=== PATIENT | female | born 1980 | race Two or more races ===

== ENCOUNTER 2019-11-01 21:23 | Inpatient (IN) | payer MEDICAID ==
[2019-11-01] MEDS ORDERED: Witch Hazel Medicated Pads 40/Jar TOP PRN (21:40)
[2019-11-01] MEDS ORDERED: Benzocaine/Menthol 20%-0.5% Spray 56 GM Canister TOP PRN (21:40)
[2019-11-01] MEDS ORDERED: Docusate Sodium 100 MG Cap PO PRN (21:40)
--- NOTE | 2019-11-01 21:45 | PCM.LDHP ---
L&D History of Present Illness - General Date of Service: 11/01/19 Admit Problem/Dx: Patient Status Order with Admit Dx/Problem 11/01/19 21:40 Patient Status [ADT] Routine Admission Diagnosis/Problem Admission Diagnosis/Problem Labor established - History of Present Illness Introduction:: 39 year old at 39w0. Here via EMS 9 cm. [facility] with Dr. 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 H&P Review of Systems - Review of Systems: Review Of Systems: See Below General: Reports: No Symptoms HEENT: Reports: No Symptoms Pulmonary: Reports: No Symptoms Cardiovascular: Reports: No Symptoms Gastrointestinal: Reports: No Symptoms Genitourinary: Reports: No Symptoms Musculoskeletal: Reports: No Symptoms Skin: Reports: No Symptoms Psychiatric: Reports: No Symptoms Neurological: Reports: No Symptoms Hematologic/Lymphatic: Reports: No Symptoms Immunologic: Reports: No Symptoms L&D Exam - Exam Exam: See Below - OB Specific Contraction Intensity: Strong Movement: Active Heart Tones: Present Heart Rate (FHR) Variability: Moderate (6-25 bmp) Presentation: Vertex - Rey Score Rey Score Cervix Position: Anterior Rey Score Effacement: >80% Rey Score Dilation: > 5 cm Rey Score Infant's Station: +1, +2 - Exam General: Alert, Oriented HEENT: PERRLA, Conjunctiva Clear, EACs Clear, EOMI, Hearing Intact, Mucosa Moist & [place], Nares Patent, Normal Nasal Septum, Posterior Pharynx Clear, TMs Clear Neck: Supple, Trachea Midline Lungs: Clear to Auscultation, Normal Respiratory Effort Cardiovascular: Regular Rate, Regular Rhythm GI/Abdominal Exam: Normal Bowel Sounds, Soft, Non-Tender, No Organomegaly, No Distention, No Abnormal Bruit, No Mass, Pelvis Stable Back Exam: Normal Inspection, Full Range of Motion Extremities: Normal Inspection, Normal Range of Motion, Non-Tender, No Pedal Edema, Normal Capillary Refill Skin: Warm, Dry, Intact Neurological: Cranial Nerves Intact, Reflexes Equal Bilateral Psychiatric: Alert, Normal Affect, Normal Mood Problem List Initiated/Reviewed/Updated: Yes Orders Last 24hrs: Active Orders 24 hr Category Date Time Status Patient Status Manage Transfer [TRANSFER] Routine ADT 11/01/19 21:38 Active Patient Status [ADT] Routine ADT 11/01/19 21:40 Ordered Activity as Tolerated [RC] PER UNIT ROUTINE Care 11/01/19 21:40 Ordered Vital Signs [RC] ASDIRECTED Care 11/01/19 21:40 Ordered RAPID PLASMA REAGIN,RPR [CHEM] Routine Lab 11/01/19 21:42 Ordered Benzocaine/Menthol [Dermoplast Pain Relief [place]] Med 11/01/19 21:40 Ordered See Dose Instructions TOP ASDIRECTED PRN Docusate Sodium [Colace] Med 11/01/19 21:40 Ordered 100 mg PO BID PRN Ibuprofen [Motrin] Med 11/01/19 21:40 Ordered 600 mg PO Q6H PRN witch Mario [Tucks] Med 11/01/19 21:40 Ordered 1 pad TOP ASDIRECTED PRN Assess Lochia [WOMSER] Per Unit Routine Oth 11/01/19 21:40 Ordered Assess Uterine Involution [WOMSER] Per Unit Routine Oth 11/01/19 21:40 Ordered Breast Pump [WOMSER] Per Unit Routine Oth 11/01/19 21:40 Ordered Heat Therapy [OM.PC] PRN Oth 11/01/19 21:45 Ordered Heat Therapy [OM.PC] PRN Oth 11/02/19 21:45 Ordered Medication Administration Instruction [OM.PC] Routine Oth 11/01/19 21:40 Ordered Perineal Care [OM.PC] Per Unit Routine Oth 11/01/19 21:40 Ordered Sitz Bath [OM.PC] Per Unit Routine Oth 11/01/19 21:40 Ordered Medication Orders Benzocaine/Menthol (Dermoplast Pain Relief [place]) 0 gm TOP ASDIRECTED PRN PRN Reason: Perineal Comfort Measure Docusate Sodium (Colace) 100 mg PO BID PRN PRN Reason: Constipation Ibuprofen (Motrin) 600 mg PO Q6H PRN PRN Reason: Mild pain or fever Witch Mario (Tucks) 1 pad TOP ASDIRECTED PRN PRN Reason: Pain Assessment/Plan Comment:: Term labor with rapid after arrival
--- NOTE | 2019-11-01 21:47 | PCM.SN.2 ---
- Free Text/Narrative Note: Stage I - Patient presented 9 cm in active labor. IV placed. AROM clear fluid. Stage II - of viable female, weight 3470g, 8/9 APGARS at 2126. Head delivered in controlled manner over intact perineum. Body and shoulders atraumatically. To maternal abdomen. Cord clamped and cut. Positive cry. Stage III - of intact placenta at 2127. EBL 300. No laceration. 3vc. Cord blood and segment sent.
[2019-11-01] MEDS ORDERED: Sodium Chloride 0.9% 10 ML Syringe FLUSH PRN (21:59)
[2019-11-01] MEDS ORDERED: Oxytocin/Lactated Ringers 10 UNIT/1,000 ML BAG IV SCH (21:59)
[2019-11-01] MEDS ORDERED: Nalbuphine 10 MG/ML Syringe IVPUSH PRN (21:59)
[2019-11-01] MEDS ORDERED: Lactated Ringers 1,000 ML IV SCH (21:59)
[2019-11-01] MEDS: Ibuprofen 600 MG Tab PO PRN (22:29)
[2019-11-02] MEDS: Ibuprofen 600 MG Tab PO PRN (04:26)
--- NOTE | 2019-11-02 06:21 | PCM.PNPP ---
- General Info Date of Service: 11/02/19 Functional Status: Reports: Pain Controlled - Review of Systems General: Reports: No Symptoms HEENT: Reports: No Symptoms Pulmonary: Reports: No Symptoms Cardiovascular: Reports: No Symptoms Gastrointestinal: Reports: No Symptoms Genitourinary: Reports: No Symptoms Musculoskeletal: Reports: No Symptoms Skin: Reports: No Symptoms Neurological: Reports: No Symptoms Psychiatric: Reports: No Symptoms - General Info Date of Service: 11/02/19 - Patient Data Vital Signs - Most Recent: Last Vital Signs Temp 36.4 C 11/02/19 02:25 Pulse 92 11/02/19 02:25 Resp 15 11/02/19 02:25 BP 92/57 L 11/02/19 02:25 Pulse Ox 98 11/02/19 02:25 Med Orders - Current: Current Medications Benzocaine/Menthol (Dermoplast Pain Relief [place]) 0 gm TOP ASDIRECTED PRN PRN Reason: Perineal Comfort Measure Last Admin: 11/01/19 22:29 Dose: 1 canister Documented by: Docusate Sodium (Colace) 100 mg PO BID PRN PRN Reason: Constipation Oxytocin/Lactated Ringer's (Pitocin In Lr 10 Units/1,000 Ml) 10 unit in 1,000 mls @ 100 mls/hr IV .CONTINUOUS IBRAHIMA Lactated Ringer's (Ringers, Lactated) 1,000 mls @ 100 mls/hr IV ASDIRECTED IBRAHIMA Last Admin: 11/01/19 21:28 Dose: 900 mls/hr Documented by: Ibuprofen (Motrin) 600 mg PO Q6H PRN PRN Reason: Mild pain or fever Last Admin: 11/02/19 04:26 Dose: 600 mg Documented by: Nalbuphine HCl (Nubain) 10 mg IVPUSH Q2H PRN PRN Reason: Pain Sodium Chloride (Saline Flush) 10 ml FLUSH ASDIRECTED PRN PRN Reason: Keep Vein Open Witch Mario (Tucks) 1 pad TOP ASDIRECTED PRN PRN Reason: Pain Last Admin: 11/01/19 22:28 Dose: 1 container Documented by: - Interaction Infant Disposition, : in Room with Family Support Person: Significant Other, Other (see below) - Recovery Exam Fundal Tone: Firm Fundal Level: At Umbilicus Fundal Placement: Midline Lochia Amount: Moderate Lochia Color: Rubra/Red Perineum Description: Intact, Minimal Bruising/Swelling Episiotomy/Laceration: None Bladder Status: Voiding Urinary Elimination: Voided - Exam General: Alert, Oriented HEENT: Pupils Equal Neck: Supple Lungs: Clear to Auscultation, Normal Respiratory Effort Cardiovascular: Regular Rate, Regular Rhythm GI/Abdominal Exam: Normal Bowel Sounds, Soft, Non-Tender, No Organomegaly, No Distention, No Abnormal Bruit, No Mass, Pelvis Stable Extremities: Normal Inspection, Normal Range of Motion, Non-Tender, No Pedal Edema, Normal Capillary Refill Neurological: No New Focal Deficit Psy/Mental Status: Alert, Normal Affect, Normal Mood - Problem List Review Problem List Initiated/Reviewed/Updated: Yes - My Orders Last 24 Hours: My Active Orders 11/01/19 Dinner Regular Diet [DIET] 11/01/19 21:40 Patient Status [ADT] Routine Activity as Tolerated [RC] PER UNIT ROUTINE Vital Signs [RC] 09,15,21,03 Benzocaine/Menthol [Dermoplast Pain Relief [place]] See Dose Instructions TOP ASDIRECTED PRN Docusate Sodium [Colace] 100 mg PO BID PRN Ibuprofen [Motrin] 600 mg PO Q6H PRN witch Mario [Tucks] 1 pad TOP ASDIRECTED PRN Assess Lochia [WOMSER] Per Unit Routine Assess Uterine Involution [WOMSER] Per Unit Routine Breast Pump [WOMSER] Per Unit Routine Medication Administration Instruction [OM.PC] Routine Perineal Care [OM.PC] Per Unit Routine Sitz Bath [OM.PC] Per Unit Routine 11/01/19 21:45 Heat Therapy [OM.PC] PRN 11/01/19 21:56 RAPID PLASMA REAGIN,RPR [CHEM] Routine 11/01/19 21:59 Lactated Ringers [Ringers, Lactated] 1,000 ml IV ASDIRECTED Nalbuphine [Nubain] 10 mg IVPUSH Q2H PRN Oxytocin/Lactated Ringers [Pitocin in LR 10 Units/1,000 ML] 10 unit in 1,000 ml IV .CONTINUOUS Sodium Chloride 0.9% [Saline Flush] 10 ml FLUSH ASDIRECTED PRN 11/01/19 21:59 Activity as Tolerated [RC] PFP Communication Order [RC] ASDIRECTED Heart Tones [RC] ASDIRECTED Non Stress Test [RC] PER UNIT ROUTINE Notify Provider [RC] PFP Notify Provider [RC] PRN Peripheral IV Care [RC] . DIRECTED Vital Signs [RC] PER UNIT ROUTINE Electronic Heart Tones Ext w TOCO [WOMSER] Routine Electronic Heart Tones Internal [WOMSER] Per Unit Routine Peripheral IV Insertion Adult [OM.PC] Routine 11/02/19 21:45 Heat Therapy [OM.PC] PRN - Assessment Assessment:: PPD1 Doing great. Probably discharge tomorrow - Plan Plan:: Term labor with rapid after arrival
[2019-11-02] MEDS ORDERED: Measles, Mumps & Rubella Vaccine 0.5 ML SDV SUBCUT ONE (20:00)
--- NOTE | 2019-11-03 08:05 | PCM.DCSUM1 ---
Discharge Summary - Hospital Course Diagnosis: Stroke: No - Discharge Data Discharge Date: 11/03/19 Discharge Disposition: Home, Self-Care 01 Condition: Good - Referral to Home Health Primary Care Physician: Moraima Godoy MD - Patient Instructions Diet: Usual Diet as Tolerated Activity: No Strenuous Activities Driving: May Drive Today Wound/Incision Care: Keep Operative Site/Wound Site Clean and Dry Notify Provider of: Fever - Discharge Plan *PRESCRIPTION DRUG MONITORING PROGRAM REVIEWED*: No *COPY OF PRESCRIPTION DRUG MONITORING REPORT IN PATIENT LIANE: No Home Medications: Home Meds Acyclovir [Zovirax] 400 mg PO DAILY 11/02/19 [History] Ferrous Sulfate 325 mg PO DAILY 11/02/19 [History] Pnv No.95/Ferrous Fum/Folic AC [ Vitamins Tablet] 1 tab PO DAILY 11/02/19 [History] Referrals: Arlet Rascon MD [Physician] - (2 weeks ) - Discharge Summary/Plan Comment DC Time >30 min.: No - General Info Date of Service: 11/03/19 Functional Status: Reports: Pain Controlled - Review of Systems General: Reports: No Symptoms HEENT: Reports: No Symptoms Pulmonary: Reports: No Symptoms Cardiovascular: Reports: No Symptoms Gastrointestinal: Reports: No Symptoms Genitourinary: Reports: No Symptoms Musculoskeletal: Reports: No Symptoms Skin: Reports: No Symptoms Neurological: Reports: No Symptoms Psychiatric: Reports: No Symptoms - Patient Data Vitals - Most Recent: Last Vital Signs Temp 36.7 C 11/03/19 03:54 Pulse 67 11/03/19 03:54 Resp 14 11/03/19 03:54 BP 95/62 11/03/19 03:54 Pulse Ox 99 11/03/19 03:54 Weight - Most Recent: 68.946 kg I&O - Last 24 hours: Intake & Output 11/02/19 11/03/19 11/03/19 22:59 06:59 14:59 Intake Total 240 Balance 240 Med Orders - Current: Current Medications Benzocaine/Menthol (Dermoplast Pain Relief [place]) 0 gm TOP ASDIRECTED PRN PRN Reason: Perineal Comfort Measure Last Admin: 11/01/19 22:29 Dose: 1 canister Documented by: Docusate Sodium (Colace) 100 mg PO BID PRN PRN Reason: Constipation Oxytocin/Lactated Ringer's (Pitocin In Lr 10 Units/1,000 Ml) 10 unit in 1,000 mls @ 100 mls/hr IV .CONTINUOUS IBRAHIMA Lactated Ringer's (Ringers, Lactated) 1,000 mls @ 100 mls/hr IV ASDIRECTED IBRAHIMA Last Admin: 11/01/19 21:28 Dose: 900 mls/hr Documented by: Ibuprofen (Motrin) 600 mg PO Q6H PRN PRN Reason: Mild pain or fever Last Admin: 11/02/19 04:26 Dose: 600 mg Documented by: Nalbuphine HCl (Nubain) 10 mg IVPUSH Q2H PRN PRN Reason: Pain Sodium Chloride (Saline Flush) 10 ml FLUSH ASDIRECTED PRN PRN Reason: Keep Vein Open Witch Dilma (Tucks) 1 pad TOP ASDIRECTED PRN PRN Reason: Pain Last Admin: 11/01/19 22:28 Dose: 1 container Documented by: Discontinued Medications Measles/Mumps/Rubella Vaccine Live (M-M-R Ii Vaccine) 0.5 ml SUBCUT .ONCE ONE Stop: 11/02/19 20:01 Last Admin: 11/02/19 20:24 Dose: 0.5 ml Documented by: - Exam General: Reports: Alert, Oriented HEENT: Reports: Pupils Equal, Pupils Reactive, EOMI, Mucous Membr. Moist/[place] Neck: Reports: Supple Lungs: Reports: Clear to Auscultation, Normal Respiratory Effort Cardiovascular: Reports: Regular Rate, Regular Rhythm GI/Abdominal Exam: Normal Bowel Sounds, Soft, Non-Tender, No Organomegaly, No Distention, No Abnormal Bruit, No Mass, Pelvis Stable (Female) Exam: Normal External Exam Rectal (Female) Exam: Normal Exam, Normal Rectal Tone Back Exam: Reports: Normal Inspection, Full Range of Motion Extremities: Normal Inspection, Normal Range of Motion, Non-Tender, No Pedal Edema, Normal Capillary Refill Skin: Reports: Warm, Dry, Intact Wound/Incisions: Reports: Healing Well Neurological: Reports: No New Focal Deficit Psy/Mental Status: Reports: Alert, Normal Affect, Normal Mood
== END 2019-11-03 19:00 | disposition home or self-care (01) | DRG 807 ==
LOC: JD.OB 21:23 → OBSVTOIN 21:27 → JD.OB 21:27
PROVIDERS: ADMIT Obstetrics & Gynecology; ATTEND Obstetrics & Gynecology
PROC: 10E0XZZ Delivery of Products of Conception, External Approach (ICD-10-PCS; principal; 2019-11-01)
PROC: 10907ZC Drainage of Amniotic Fluid, Therapeutic from Products of Conception, Via Natural or Artificial Opening (ICD-10-PCS; 2019-11-01)
DX: O80 Encounter for full-term uncomplicated delivery (principal); Z37.0 Single live birth; Z3A.39 39 weeks gestation of pregnancy
CPT/HCPCS: 36415; 59025; 59409; 86592; 90471; 90707; A9270-GY; J7120